=== PATIENT | female | born 1965 | race Caucasian/White ===

== ENCOUNTER 2022-10-29 23:13 | Inpatient (IN) | payer OTHER ==
[~2022-10-29] VITALS: Ht 162.6 cm; Wt 96.0 kg
[2022-10-29] MEDS ORDERED: MORPHINE SULFATE 4 MG/ML SYR/VIAL IV ONE (23:30)
[2022-10-29] MEDS ORDERED: SODIUM CHLORIDE 0.9% 1,000 ML IV ONE (23:30)
[2022-10-29] MEDS ORDERED: ONDANSETRON HCL 4 MG/2 ML VIAL IV ONE (23:30)
[2022-10-29] MEDS ORDERED: IOHEXOL 350 MG/ML 100ML IJ ONE (23:35)
[2022-10-30 00:10] VITALS: PULSE 88; RESP 16; O2SAT 97
[2022-10-30] MEDS ORDERED: PIPERACILLIN-TAZOB 3.375GM 100 ML IV ONE (00:45)
[2022-10-30 01:12] LABS: Basophils # (auto) 0 10 ^3/uL (0-0.2); Basophils % (auto) 0.3 % (0.0-2.0); Eosinophils # (auto) 0 10 ^3/uL (0-0.8); Eosinophils % (auto) 0.2 % (0.0-7.0); Hematocrit 41.9 % (36.0-46.0); Hemoglobin 13.8 g/dL (12.2-16.2); Lymphocytes % (auto) 7.2 % (10.0-50.0); Mean Corpuscular Hemoglobin 30.6 pg (28.0-32.0); Mean Corpuscular Hgb Conc. 32.9 g/dL (32.0-36.0); Mean Corpuscular Volume 93.2 fL (80.0-100.0); Monocytes # (auto) 0.8 10 ^3/uL (0-1.3); Monocytes % (auto) 5.7 % (0.0-12.0); Neutrophils # (auto) 11.9 10 ^3/uL (1.6-8.6); Neutrophils % (auto) 86.6 % (37.0-80.0); Red Cell Distribution Width 13.6 % (11.8-14.3); White Blood Cell 13.7 10^3/uL (4.4-10.8)
[2022-10-30 01:20] LABS: Potassium 3.2 mmol/L (3.5-5.1)
[2022-10-30 01:23] LABS: Bilirubin, Total 0.3 mg/dL (0.2-1.0); Total Protein 7.1 g/dL (6.4-8.2)
[2022-10-30 01:29] LABS: BUN/Creatinine Ratio 23.7 (10.0-20.0)
[2022-10-30] MEDS ORDERED: MORPHINE SULFATE 4 MG/ML SYR/VIAL IV ONE (02:15)
[2022-10-30] MEDS ORDERED: METOCLOPRAMIDE HCL 5MG/ml INJ 2ml VIAL IV ONE (02:15)
[2022-10-30] MEDS ORDERED: MORPHINE SULFATE INJ 2 MG/ml SYRG IV PRN ×2 (03:30→13:30)
[2022-10-30] MEDS ORDERED: ONDANSETRON HCL 4 MG/2 ML VIAL IV PRN (03:30)
[2022-10-30] MEDS: SODIUM CHLORIDE 0.9% 1,000 ML IV SCH ×2 (04:04→16:56)
[2022-10-30 08:38] VITALS: PULSE 90; RESP 19; O2SAT 96
[2022-10-30] MEDS: PANTOPRAZOLE 40 MG/10 ML VIAL INJ IV SCH (09:47)
[2022-10-30] MEDS ORDERED: GASTROGRAFIN 120 ML SOL ONE (10:38)
[2022-10-30 11:30] VITALS: BP 124/51; PULSE 93; RESP 22; TEMP 98.3; O2SAT 95
[2022-10-30] MEDS ORDERED: cefTRIAXone 1GM/50ML D5W 50 ML IV ONE (13:30)
[2022-10-30 14:11] LABS: INR 1.05 (0.9-1.15); Partial Thromboplastin Time 27.6 SEC (24.5-34.5)
[2022-10-30] MEDS ORDERED: ACETAMINOPHEN 650 MG RECT SUPP PR PRN (15:00)
[2022-10-30] MEDS: SOD CHL 0.9%/ KCL 20MEQ 1,000 ML IV SCH (15:45)
[2022-10-30] MEDS: metroNIDAZOLE 500MG/100ML 100 ML IV SCH ×2 (16:00→16:59)
[2022-10-30 19:42] VITALS: PULSE 93; O2SAT 97
[2022-10-30 23:00] VITALS: PULSE 81; RESP 22; O2SAT 95
[2022-10-30] MEDS ORDERED: CYA100I IM (23:16)
[2022-10-31] VITALS (7 sets, daily range): BP systolic 100–129; BP diastolic 53–82; PULSE 68–88; RESP 18–20; TEMP 97.5–98.7; O2SAT 96–100
[2022-10-31 06:27] LABS: Basophils # (auto) 0 10 ^3/uL (0-0.2); Basophils % (auto) 0.4 % (0.0-2.0); Eosinophils # (auto) 0.1 10 ^3/uL (0-0.8); Eosinophils % (auto) 1.1 % (0.0-7.0); Hematocrit 36.9 % (36.0-46.0); Hemoglobin 12.4 g/dL (12.2-16.2); Lymphocytes # (auto) 2.1 10 ^3/uL (0.4-5.4); Lymphocytes % (auto) 26.8 % (10.0-50.0); Mean Corpuscular Hemoglobin 31.2 pg (28.0-32.0); Mean Corpuscular Hgb Conc. 33.6 g/dL (32.0-36.0); Mean Corpuscular Volume 92.7 fL (80.0-100.0); Monocytes # (auto) 0.8 10 ^3/uL (0-1.3); Monocytes % (auto) 9.5 % (0.0-12.0); Neutrophils % (auto) 62.2 % (37.0-80.0); Nucleated Red Blood Cells % 0.1 %; Red Blood Cells 3.98 10^6/uL (4.0-5.20); Red Cell Distribution Width 13.6 % (11.8-14.3)
[2022-10-31 06:45] LABS: Potassium 3.4 mmol/L (3.5-5.1)
[2022-10-31 06:55] LABS: Albumin 3.3 g/dL (3.4-5.0); BUN/Creatinine Ratio 37.5 (10.0-20.0); Bilirubin, Total 0.2 mg/dL (0.2-1.0); Calcium 8.6 mg/dL (8.5-10.1); Total Protein 6.1 g/dL (6.4-8.2)
[2022-10-31] MEDS: SOD CHL 0.9%/ KCL 20MEQ 1,000 ML IV SCH (09:30)
[2022-10-31] MEDS: metroNIDAZOLE 500MG/100ML 100 ML IV SCH ×3 (10:42→23:27)
[2022-10-31] MEDS: PANTOPRAZOLE 40 MG/10 ML VIAL INJ IV SCH (10:43)
[2022-10-31] MEDS: SODIUM CHLORIDE 0.9% 1,000 ML IV SCH ×2 (10:47→19:30)
[2022-10-31] MEDS: cefTRIAXone 1GM/50ML D5W 50 ML IV SCH (12:26)
[2022-10-31] MEDS ORDERED: POTASSIUM CHL 20 Meq TABLET PO ONE (15:00)
[2022-11-01 04:54] VITALS: BP 134/72; PULSE 66; RESP 17; TEMP 98.9; O2SAT 97
[2022-11-01] MEDS: SOD CHL 0.9%/ KCL 20MEQ 1,000 ML IV SCH (05:30)
[2022-11-01 06:37] LABS: BUN/Creatinine Ratio 15.9 (10.0-20.0); Calcium 8.5 mg/dL (8.5-10.1); Potassium 3.7 mmol/L (3.5-5.1)
[2022-11-01 08:00] VITALS: PULSE 74
[2022-11-01 09:00] VITALS: BP 113/66; PULSE 74; RESP 17; TEMP 98.3; O2SAT 95
[2022-11-01] MEDS: PANTOPRAZOLE 40 MG/10 ML VIAL INJ IV SCH (10:13)
[2022-11-01] MEDS: metroNIDAZOLE 500MG/100ML 100 ML IV SCH ×2 (10:13→16:00)
[2022-11-01] MEDS: cefTRIAXone 1GM/50ML D5W 50 ML IV SCH (11:23)
[2022-11-01 13:00] VITALS: BP 144/61; PULSE 82; RESP 18; TEMP 98.3; O2SAT 97
[2022-11-01 14:28] VITALS: BP 144/61; PULSE 82; RESP 18; TEMP 98.3; O2SAT 97
[2022-11-01 17:00] VITALS: BP 124/78; PULSE 83; RESP 17; TEMP 97.6; O2SAT 96
== END 2022-11-01 19:17 | disposition home or self-care (01) | DRG 388 ==
LOC: EDBD 23:13 → ER 23:20 → OVERFLOW 10-30 03:32 → TELE-EAST 10-30 22:41
PROVIDERS: ADMIT Nurse Practitioner; ATTEND Internal Medicine
DX: K56.609 Unspecified intestinal obstruction, unspecified as to partial versus complete obstruction (principal); K85.90 Acute pancreatitis without necrosis or infection, unspecified; E66.9 Obesity, unspecified; Z98.84 Bariatric surgery status; E87.6 Hypokalemia; Z90.49 Acquired absence of other specified parts of digestive tract; Z68.36 Body mass index [BMI] 36.0-36.9, adult; E78.1 Pure hyperglyceridemia
CPT/HCPCS: 36415; 74250; 76705; 80048; 80053; 80061; 83036; 83605; 83690; 84484; 85025; 85610; 85730; 86301; 87040; 93005; 96365; 96367; 96375; 96376; C9113; G0378; J0696; J2405; J2543; J3490